=== PATIENT | male | born 1990 | race Caucasian/White ===

== ENCOUNTER 2018-12-08 21:48 | Emergency (ER) | payer BC, OTHER ==
[2018-12-08] MEDS: ONDANSETRON (ODT) 4 MG TAB ODT (23:46)
[2018-12-08] MEDS: LIDOCAINE/MYLANTA 40 ML BTL PO (23:46)
[2018-12-08] MEDS: BELLADONNA/PHENOBARBITAL TAB PO (23:46)
== END 2018-12-09 01:19 | disposition home or self-care (01) ==
LOC: FTE 21:48
DX: K21.9 Gastro-esophageal reflux disease without esophagitis (principal)
CPT/HCPCS: 99283